=== PATIENT | male | born 1945 | race Caucasian/White ===

== ENCOUNTER 2019-12-31 15:53 | Outpatient (CLI) | payer MEDICARE, OTHER ==
--- NOTE | 2019-12-31 19:05 | RAD ---
RIGHT SHOULDER THREE VIEWS: Date: 12-31-2019 FINDINGS: No fracture or dislocation was seen. The glenohumeral joint appears normal. There is some bony spurri ng in the AC joint. 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 POS: HOME
--- NOTE | 2019-12-31 19:08 | RAD ---
CERVICAL SPINE FIVE VIEWS: Date: 12-31-2019 FINDINGS: There is loss of the normal cervical lordosis which may be due to muscle spasm. Extensive degenerativ e changes are present with disc space narrowing at all levels from C3 and below, but particularly at C4-5. Oblique view show mild neural foraminal narrowing on the left at C4-5, C5-6, and C6-7. There is also some narrowing on the right at C6-7. IMPRESSION: Diffuse cervical spondylosis. POS: HOME
== END 2019-12-31 15:54 | disposition home or self-care (01) ==
LOC: BURRAD 15:53
PROVIDERS: ATTEND Nurse Practitioner
DX: M47.22 Other spondylosis with radiculopathy, cervical region (principal); M19.011 Primary osteoarthritis, right shoulder
CPT/HCPCS: 72050

== ENCOUNTER 2021-11-29 14:06 | Emergency (ER) | payer MEDICARE, OTHER ==
[2021-11-29] MEDS ORDERED: Methocarbamol 500 MG TAB ONE ×2 (14:52→14:54)
== END 2021-11-29 14:57 | disposition home or self-care (01) ==
LOC: BURERS 14:06
DX: S39.012A Strain of muscle, fascia and tendon of lower back, initial encounter (principal); K21.9 Gastro-esophageal reflux disease without esophagitis; E78.2 Mixed hyperlipidemia; X50.0XXA Overexertion from strenuous movement or load, initial encounter
CPT/HCPCS: 99283

== ENCOUNTER 2024-10-27 04:55 | Emergency (ER) | payer MEDICARE, OTHER ==
[2024-10-27] MEDS ORDERED: Ketorolac Tromethamine 30 MG (1 mL) VIAL ONE (05:25)
== END 2024-10-27 05:40 | disposition home or self-care (01) ==
LOC: BURERS 04:55
DX: M62.830 Muscle spasm of back (principal); E78.2 Mixed hyperlipidemia; Z79.899 Other long term (current) drug therapy
CPT/HCPCS: 96372; 99283; J1885